=== PATIENT | male | born 1980 | race Two or more races ===

== ENCOUNTER 2024-07-28 11:53 | Emergency (ER) | payer OTHER ==
[~2024-07-28] VITALS: Ht 170.2 cm; Wt 59.0 kg
[2024-07-28] MEDS ORDERED: EZALLOR SPRINKLE5 MG (12:28)
[2024-07-28] MEDS ORDERED: CANASA1000 MG (12:28)
[2024-07-28] MEDS ORDERED: CEFTRIAXONE SODIUM 2,000 MG VIAL IV ONE (13:30)
[2024-07-28] MEDS ORDERED: FAMOtidine 10 MG/ML (4ML VIAL) IV ONE (13:30)
[2024-07-28] MEDS ORDERED: METHYLPREDNISOLONE SOD SUCC 125 MG VIAL IV ONE (13:30)
[2024-07-28] MEDS ORDERED: 0.9 % SODIUM CHLORIDE 1,000 ML IV ONE (13:30)
[2024-07-28 14:19] LABS: HEMATOCRIT 44.6 % (39.0-48.0); HEMOGLOBIN 15.3 g/dL (13-16.00); MEAN CELL VOLUME 92.1 fL (80.0-100.00); MEAN CORPUSCULAR HEMOGLOBIN 31.7 pg (27.00-32.0); MEAN CORPUSCULAR HGB CONC 34.4 g/dl (32.0-36.0); PLATELET COUNT 182 K/uL (150-450); RED BLOOD COUNT 4.84 M/uL (4.00-6.00); RED CELL DISTRIBUTION WIDTH 12.6 % (11.5-14.5)
[2024-07-28 14:31] LABS: INR 1.22; PARTIAL THROMBOPLASTIN TIME 28.6 SECONDS (22.0-34.0); PROTHROMBIN TIME 13.1 SECONDS (9.0-11.5)
[2024-07-28 14:36] LABS: ALBUMIN 4.3 gm/dL (3.4-5.0); BILIRUBIN TOTAL 1.25 mg/dL (0.3-1.2); CALCIUM 9.5 mg/dL (8.5-10.1); CREATININE SERUM 1.04 mg/dL (0.70-1.30); GFR 78.32; GLOBULINA 3.9 G/DL (2.4-3.5); POTASSIUM 3.83 mEq/L (3.5-5.1); TOTAL PROTEIN 8.2 gm/dL (6.4-8.2)
[2024-07-28 15:12] LABS: URINE APPEARANCE Clear; URINE BILIRRUBIN Small (NEGATIVE); URINE BLOOD Large; URINE COLOR Dark Yellow; URINE GLUCOSE Negative (NEGATIVE); URINE LEUKOCYTE Trace; URINE NITRATE Negative
[2024-07-28 15:15] LABS: URINE BACTERIA 11.3 uL (0.0-1933); URINE EPITHELIAL CELLS 11.4 uL (0.0-38.8); URINE RBC 747.8 uL (0.0-20.8)
[2024-07-28 16:02] LABS: URINE CAST 0.15 uL (0.0-1.40); URINE KETONE 40 (NEGATIVE); URINE PROTEIN 100 (NEGATIVE)
[2024-07-28] MEDS ORDERED: CLINDAMYCIN PHOSPHATE 150 MG/ML (600mg) IV STA (18:49)
[2024-07-28] MEDS ORDERED: DEXAMETHASONE SODIUM PHOSPHATE 4 MG/ML VIAL IV STA (18:49)
== END 2024-07-28 20:41 | disposition designated cancer center or children's hospital (05) ==
LOC: ER 11:55
PROVIDERS: General Practice
DX: J35.8 Other chronic diseases of tonsils and adenoids (principal); J02.9 Acute pharyngitis, unspecified; Z88.6 Allergy status to analgesic agent; E78.00 Pure hypercholesterolemia, unspecified; K52.89 Other specified noninfective gastroenteritis and colitis; J35.1 Hypertrophy of tonsils; Z20.822 Contact with and (suspected) exposure to COVID-19